=== PATIENT | female | born 1965 | race Caucasian/White ===

== ENCOUNTER 2019-02-12 10:40 | Observation (INO) ==
[2019-02-12] MEDS ORDERED: ASPIRIN PO ONE (11:06)
[2019-02-12] MEDS ORDERED: ASPIRIN ONE (11:10)
--- NOTE | 2019-02-12 11:27 | Diag Imaging Result Doc PS360 ---
CHEST-PORTABLE - 02/12/2019 INDICATION: stroke like symptoms COMPARISON: 11/30/2015 FINDINGS: The lungs are normally expanded and clear. Heart size and mediastinal contours are normal. No pneumothorax or pleural effusion. IMPRESSION: Negative exam. Electronically signed by Nikolai Smith 02/12/2019 11:25 AM
[2019-02-12 11:31] LABS: BASO# 0.04 X1000 (0.0-0.2); BASO% 0.4 % (0.0-0.8); EOS# 0.24 X1000 (0.0-0.7); EOS% 2.3 % (0.0-10.0); HEMATOCRIT 45.5 % (37.0-47.0); HEMOGLOBIN 15.9 g/dL (12.0-16.0); IMM GRAN# 0.02 X1000 (0.0-0.04); IMM GRAN% 0.2 % (0.0-0.5); LYMPH# 3.42 X1000 (1.2-3.4); LYMPH% 33.4 % (20.5-51.1); MCH 33.6 PG (27-31); MCHC 34.9 g/dL (33-37); MCV 96.2 FL (81-99); MONO# 0.52 X1000 (0.11-0.59); MONO% 5.1 % (1.7-9.3); MPV 11.1 FL (7.4-10.4); NEUT# 6.01 X1000 (1.4-6.5); NEUT% 58.6 % (42.2-75.2); PLT 243 X1000 (130-400); RBC 4.73 XMIL (4.2-5.4); RDW 12.2 % (11.5-14.5); WBC 10.25 X1000 (4.8-10.8)
[2019-02-12 11:34] LABS: URINE SOURCE CLEAN CATCH
[2019-02-12 11:35] LABS: INR 0.92; PROTIME 13.1 Seconds (11.0-16.0)
[2019-02-12 11:36] LABS: PTT 29.7 Seconds (22.3-41.8)
[2019-02-12 11:37] LABS: BILIRUBIN URINE NEGATIVE (NEGATIVE); BLOOD URINE MODERATE (NEGATIVE); COLOR STRAW; GLUCOSE URINE NEGATIVE (NEGATIVE); KETONE URINE NEGATIVE (NEGATIVE); LEUKOCYTES URINE NEGATIVE (NEGATIVE); NITRITE URINE NEGATIVE (NEGATIVE); PROTEIN URINE NEGATIVE (NEGATIVE); SP GRAVITY URINE 1.005; TURBIDITY URINE CLEAR (CLEAR); UROBILINOGEN URINE NORMAL (NORMAL)
[2019-02-12 11:38] LABS: UR EPITHELIAL CELLS <10 /HPF (<10); URINE BACTERIA NEGATIVE /HPF; URINE WBC <10 /HPF (<10)
[2019-02-12 11:58] LABS: AGAP 10; ALB/GLOB RATIO 1.4; ALBUMIN 4.2 g/dL (3.5-5.0); ALKALINE PHOSPHATASE 102 U/L (32-104); BUN 12 mg/dL (8-22); CALCIUM 9.2 mg/dL (8.8-10.2); CHLORIDE 102 mmol/L (98-107); COSMO 276; CREATININE 0.7 mg/dL (0.5-0.9); ESTIMATED GFR > 60; GLUCOSE 100 mg/dL (70-104); GOT 17 U/L (10-30); GPT 14 U/L (10-36); POTASSIUM 4.1 mmol/L (3.5-5.1); SODIUM 138 mmol/L (136-145); TCO2 26 mmol/L (25-35); TOTAL BILIRUBIN 0.56 mg/dL (0.20-1.00); TOTAL PROTEIN 7.1 g/dL (6.3-8.3)
--- NOTE | 2019-02-12 12:08 | EKG Report ---
Test Performed on : 02/12/2019 10:56:19 AM Test Reason : Stroke like symptoms Blood Pressure : / mmHG Vent. Rate : 081 BPM Atrial Rate : 081 BPM P-R Int : 176 ms QRS Dur : 074 ms QT Int : 376 ms P-R-T Axes : 049 001 040 degrees QTc Int : 436 ms Normal sinus rhythm. Normal ECG No previous ECGs available Unconfirmed Result
--- NOTE | 2019-02-12 12:24 | Diag Imaging Result Doc PS360 ---
CT HEAD W/O CONTRAST - 02/12/2019 INDICATION: stroke like symptoms COMPARISON: None FINDINGS: The ventricles and sulci are normal in size and contour. No intracranial mass or hemorrhage. The skull is intact. The sinuses mastoids and middle ears are clear. IMPRESSION: Negative exam. This exam was performed using automated exposure control, adjustment of mA or kV according to patient size, and/or use of iterative reconstruction technique Electronically signed by Nikolai Smith 02/12/2019 12:21 PM
--- NOTE | 2019-02-12 17:27 | PROVIDER DOCUMENTATION ---
This chart was entered by Lalitha Howell Scribe, acting as scribe for Guera Colon MD. HPI-Neurological Disorder - General Chief Complaint: Stroke-Like Symptoms Stated Complaint: left side facial/arm pain Time Seen by Provider: 02/12/19 11:10 Source: patient Allergies/Adverse Reactions: Patient Allergies Allergy/AdvReac Type Severity Reaction Status Date / Time No Known Allergies Allergy Verified 02/12/19 10:56 Home Medications: Home Medication List Medication Instructions Recorded Confirmed Last Taken Type NK [No Home Medications] 02/12/19 02/12/19 Unknown History - History of Present Illness-Neuro Nature of Presenting Problem: Patient is a 53 year old female who presents with blurred vision, tingling and numbness to left arm and left side face that started this morning at 0730. Patient states symptoms have currently resolved. Denies headache. Severity: reports: mild Onset/Duration: reports: this morning (0730) Timing: reports: gone now Context: reports: paresthesia, other (numbness) Character of Altered Mental Status: reports: N/A Character of Deficits: reports: altered sensation New weakness or altered sensation location:: reports: LUE, left facial Associated Symptoms: reports: vision changes (blurred) Similar Symptoms Previously?: No Recently seen or treated by another doctor?: No Review of Systems - Adult - REVIEW OF SYSTEMS - ADULT Constitutional: reports: no symptoms reported. denies: chills, fever, fatique Eyes: reports: see HPI, blurred vision. denies: decreased vision, double vision Ears, Nose, Mouth & Throat: reports: no symptoms reported Cardiovascular: reports: no symptoms reported Respiratory: reports: no symptoms reported Gastrointestinal: reports: no symptoms reported Genitourinary: reports: no symptoms reported Musculoskeletal: reports: no symptoms reported Integumentary: reports: no symptoms reported Neurological: reports: see HPI, numbness (LUE and left facial), paresthesia (LUE and left facial). denies: dizziness/vertigo, headache/migraines Psychiatric: reports: no symptoms reported Endocrine: reports: no symptoms reported Hematologic/Lymphatic: reports: no symptoms reported Allergic/Immunologic: reports: no symptoms reported All Other Systems: Reviewed and Negative Past History - Adult - PAST MEDICAL HISTORY-ADULT Review of Records: reports: Old Records Reviewed, Nursing Assessment Review, Medications Reviewed, Social history reviewed & non-contributory. Major Childhood Illnesses: reports: denies history Cardiovascular: reports: denies history Respiratory: reports: denies history Gastrointestinal: reports: denies history Obstetrical/Gynecological: reports: denies history Genitourinary: reports: denies history Musculoskeletal: reports: denies history Neurological: reports: denies history Endocrine/Immune: reports: denies history Other Conditions: reports: denies history - PRIOR SURGERIES/PROCEDURES Surgical/Procedure History: reports: cholecystectomy, - IMMUNIZATION STATUS Childhood Immunizations: See Nurse Assessment Flu Vaccine: See Nurse Assessment - FAMILY HISTORY Family History: reviewed, not pertinent - SOCIAL HISTORY Smoking: cigarettes, greater than 1 pack/day Provider spent 3-5 mins advising pt. on dangers of tobacco.: Discussed manners to quit use, and f/u contacts for add'l counseling. Substance Use: denies Physical Exam- Neurological - Physical Exam-Neuro Initial Vital Signs Reviewed: Yes General Appearance: alert, no apparent distress. negative: lethargic Eye Exam: bilateral eye: normal inspection, PERRL, EOMI HENMT: normocephalic/atraumatic, moist mucous membranes. negative: angioedema, hearing deficit Head Injury: no evidence of injury. negative: contusions, ecchymosis, lacerations Respiratory: chest non-tender, lungs clear, normal breath sounds. negative: crackles, rhonchi, stridor Cardiovascular: normal peripheral pulses, regular rate, rhythm. negative: tachycardia, systolic murmur Abdominal Exam: normal bowel sounds, non tender, soft. negative: guarding, rigid, rebound Extremity: non-tender, normal inspection. negative: deformity, erythema hand knitter Exam: normal hearing, normal speech, PERRL. negative: abnormal speech, fa cial droop Motor/Sensory: no motor deficit, no sensory deficit, no pronator drift. negative: sensory deficit Neurologic: grossly normal, no motor/sensory deficits. negative: aphasia, facial droop Integumentary: normal color, normal turgor, warm/dry. negative: cyanosis, ecchymosis, erythema Psych/Mental Status: normal mood/affect, oriented x 3. negative: anxious - Glascow Coma Scale Best Eye Response: (4) open spontaneously Best Verbal Response: (5) oriented Best Motor Response: (6) obeys commands Total Glascow Score: 15 Progress - PLAN OF CARE/RESULTS Result Diagrams: 02/12/19 11:14 02/12/19 11:14 - EKG 1 Time of EKG reading by physician:: 10:56 EKG Read and Signed by:: Guera Colon EKG Interpretation (*Must complete 3 of following elements*): Normal Rate: 81 Rhythm: normal sinus rhythm [place]: normal QRS: normal [place] Interval: normal ST Wave: normal Comments: normal ECG - XRAY 1 XRAY Study: Chest Impression: See EMR Report ( CHEST-PORTABLE - 02/12/2019 INDICATION: stroke like symptoms COMPARISON: 11/30/2015 FINDINGS: The lungs are normally expanded and clear. Heart size and mediastinal contours are normal. No pneumothorax or pleural effusion. IMPRESSION: Negative exam. Electronically signed by Nikolai Smith 02/12/2019 11:25 AM 02/12/19 1125 Interpreting Physician: Nikolai Smith MD Dictated Date/Time: 02/12/19 1125 cc: Geura Colon MD; None,PCP) - CT/MRI 1 CT Study: Head Impression: See EMR Report ( CT HEAD W/O CONTRAST - 02/12/2019 INDICATION: stroke like symptoms COMPARISON: None FINDINGS: The ventricles and sulci are normal in size and contour. No intracranial mass or hemorrhage. The skull is intact. The sinuses mastoids and middle ears are clear. IMPRESSION: Negative exam. This exam was performed using automated exposure control, adjustment of mA or kV according to patient size, and/or use of iterative reconstruction technique Electronically signed by Nikolai Smith 02/12/2019 12:21 PM 02/12/19 1221 Interpreting Physician: Nikolai Smith MD Dictated Date/Time: 02/12/19 1221 cc: Guera Colon MD; Salazar Cheng MD) - CONSULTS/PCP/HOSPITALIST Notification #1 *Consult/PCP/Hospitalist*: SURESH Cordova for Hospitalist Time Discussed: 12:47 Reason/Comments: Dr. Colon consulted with Tasha about patient. Consult Disposition: Will see in ED, Admit Departure - Departure Date of Disposition Decision: 02/12/19 Time of Disposition Decision: 11:57 DIAGNOSIS: TIA (transient ischemic attack) Disposition: ADMITTED INPATIENT 09 Certified Medical Emergency: Emergent Condition: Stable - Critical Care Note This patient required my direct & personal management of CC.: No Attestation - Physician/ DAVID Attestation Patient care was provided by Advanced Practice Provider:: No The physician spent face to face time with patient:: Yes Advanced Practice Provider documentation review:: Supervising physician onsite and consulted in the evaluation and care of this patient. The physician did have a face to face encounter with the patient. - NIH Stroke Scale Level of Consciousness: 0-Alert LOC Questions (ask month and age): 0-Answers Both Correctly LOC Commands (ask to open & close eyes;make a fist, let go): 0-Obeys Both Correctly Best Gaze (horizontal eye movement): 0-Normal Visual (use finger movement, counting or visual threat): 0-No Visual Loss Facial Palsy (show teeth or raise eyebrows & close eyes tght: 0-Symmetrical Movement Motor Function-left arm: 0-Normal Motor Function-right arm: 0-Normal Motor Function-left le-Normal Motor Function-right le-Normal Limb Ataxia(gjhlrj-zvlm-xvcixj, or heel to griffin): 0-No Ataxia Sensory(pin prick to face,arms,trunk,legs-compare side/side): 0-No Ataxia Best Language(name item/read sentence.Ex-Down to Earth): 0-No Aphasia Dysarthria(Pt read words or say words Ex.Mama,Tip-Top,Thanks: 0-Normal Articulation Extinction and Inattention: 0-Normal NIH Total Score: 0 Stroke tPA Guidelines - Consultation Candidate for:: NOT A CANDIDATE (patient is not a candidate due to symptoms resolving.) This chart was documented by the indicated scribe, (Lalitha Howell Scribe) and accurately reflects the services I performed and decisions made by me, Guera Colon MD, as attested by the provider's signature.
--- NOTE | 2019-02-12 18:43 | HISTORY AND PHYSICAL ---
CHIEF COMPLAINT: Blurred vision, numbness and tingling to face. HISTORY OF PRESENT ILLNESS: This is a 53-year-old female who presented to the emergency room complaining of blurred vision, numbness and tingling to her left arm and left side of the face. This started at approximately 7:30. Symptoms resolved by her arrival to the emergency room at 10:43. CT of the head was negative. She denies any prior symptoms, any prior illness, any headaches, dizziness, any palpitations or chest pain. She did state that she had some drooling to the left side of her mouth that started at the very end, although it did not recur. During my exam she did have periods while answering questions that she would pause and she seemed to stutter, although she was not aware of this. PAST MEDICAL HISTORY: Denies. PAST SURGICAL HISTORY: , cholecystectomy. SOCIAL HISTORY: She smokes a pack a day. She denies any alcohol or illicit drug use. ALLERGIES: No known drug allergies. HOME MEDICATIONS: None. REVIEW OF SYSTEMS: Discussed with the patient, with pertinent positives stated in HPI. She denied any syncope, dizziness, any chest pain, palpitations, shortness of breath, cough, fever, chills, any night sweats, recent weight loss or weight gain, any nausea, vomiting, diarrhea, constipation, black or bloody vomitus or stools, any hematuria, dysuria, frequency or urgency. PHYSICAL EXAMINATION: GENERAL: This is a 53-year-old female who is sitting up on the side of the bed in no distress. VITAL SIGNS: Blood pressure is 129/90 with a heart rate of 77, respirations are 18, temperature is 97.6 degrees with room air saturations 99% to 100%. EYES: Pupils are equal, round and reactive to light. EOMs are intact. Sclerae are anicteric. HEENT: Head is normocephalic, atraumatic. Mucous membranes are moist. NECK: Supple, with trachea midline. CARDIOVASCULAR: Regular rate and rhythm. S1, S2 appreciated. She has no lower extremity edema. Calves are nontender bilaterally, with peripheral pulses palpable x4 extremities. PULMONARY: Breath sounds are clear. No increased work of breathing noted. Chest rises and falls symmetric with respiration. GASTROINTESTINAL: Abdomen is soft, nontender, nondistended. Bowel sounds in all 4 quadrants. GENITOURINARY: She has no CVA or suprapubic tenderness. SKIN: Warm and dry. NEUROLOGIC: She is alert and oriented x3. Forehead is spared. She has equal nasal flaring. No tongue or uvula deviation. Speech is clear. She was drinking water when I came into the room. She had no difficulty swallowing. Equal shoulder shrug. She has no plantar drift. Finger-to- nose bilateral is 3/3. She has 5/5 muscle strength to 4 extremities. Kuas-zc-wpgf is 3/3 bilateral. LABORATORY DATA: WBC is 10.2 with hemoglobin 15.9, hematocrit 45.5, and platelets 243,000. Sodium is 138, potassium 4.1, BUN 12, creatinine 0.7 with a glucose of 100. Urinalysis is essentially negative. DIAGNOSTIC DATA: Chest x-ray is negative exam. Lungs are normally expanded and clear. Heart size and mediastinal contours are normal. No pneumothorax or pleural effusion. CT of the head reveals a negative exam. ASSESSMENT: 1. Transient ischemic attack. 2. Deep venous thrombosis prophylaxis. PLAN: The patient will be admitted to the medical floor. She will be placed on telemetry. We will get neurologic checks every 4 hours for 24 hours. We will get a CBC, CMP and a lipid profile in the morning. Blood pressures are running in the 120s to 160s over 90s. We will allow for permissive hypertension at least for the first 24 hours. We will reassess in the morning. Further treatments pending hospital course. Dictated by SURESH Neves for Savannah Marcelo MD cc: SURESH Neves MD
--- NOTE | 2019-02-12 19:57 | ECHO REPORT ---
ORDER DATE: 02/12/2019 INDICATION: Probably a stroke. M-MODE MEASUREMENTS: Left ventricle end diastole: 4.8. Left ventricle end systole: 3.0. Posterior wall: 1.0. Interventricular septum: 1.0. Left atrium: 3.0. Aortic diameter: 3.0. SUMMARY OF 2-DIMENSIONAL IMAGIN. The study was technically difficult. Optison was added to optimize visualization of the endocardium. 2. Left ventricular function appears to be normal in the range of 60% to 65%. There is no wall motion abnormality noted. 3. The inferior vena cava is not dilated. 4. The cardiac chambers are not dilated in general. 5. There is normal right ventricular function also. 6. There is no pericardial effusion. 7. The aortic valve opens normally. Color flow mapping unremarkable. 8. The mitral valve opens normally. There is a question of mitral valve prolapse. No significant mitral regurgitation appears to be present. 9. Pulsed wave Doppler of mitral inflow shows mild reversal of the E/A ratio. The ratio is 0.8. 10.Tissue Doppler of septal and lateral mitral annulus averages 7 cm. 11.There is no diastolic dysfunction. 12.The pulmonic valve looks grossly normal. Color flow mapping unremarkable. 13.The tricuspid valve was suboptimally visualized. Pulmonary pressure could not be estimated in this study. Clinical correlation recommended. cc: MD Mary Mann CRNP
[2019-02-13 07:12] LABS: BASO# 0.03 X1000 (0.0-0.2); BASO% 0.4 % (0.0-0.8); EOS# 0.29 X1000 (0.0-0.7); EOS% 3.6 % (0.0-10.0); HEMATOCRIT 43.5 % (37.0-47.0); HEMOGLOBIN 14.9 g/dL (12.0-16.0); IMM GRAN# 0.02 X1000 (0.0-0.04); IMM GRAN% 0.2 % (0.0-0.5); MCH 33.3 PG (27-31); MCHC 34.3 g/dL (33-37); MCV 97.1 FL (81-99); MONO# 0.47 X1000 (0.11-0.59); MONO% 5.8 % (1.7-9.3); NEUT# 4.71 X1000 (1.4-6.5); PLT 230 X1000 (130-400); RBC 4.48 XMIL (4.2-5.4); RDW 12.3 % (11.5-14.5); WBC 8.12 X1000 (4.8-10.8)
[2019-02-13 07:28] LABS: AGAP 9; ALB/GLOB RATIO 1.4; ALKALINE PHOSPHATASE 91 U/L (32-104); BUN 12 mg/dL (8-22); CALCIUM 9.2 mg/dL (8.8-10.2); CHLORIDE 107 mmol/L (98-107); COSMO 285; CREATININE 0.7 mg/dL (0.5-0.9); ESTIMATED GFR > 60; GLUCOSE 102 mg/dL (70-104); GOT 15 U/L (10-30); GPT 14 U/L (10-36); POTASSIUM 4.1 mmol/L (3.5-5.1); SODIUM 143 mmol/L (136-145); TCO2 27 mmol/L (25-35); TOTAL BILIRUBIN 0.69 mg/dL (0.20-1.00); TOTAL PROTEIN 6.9 g/dL (6.3-8.3)
[2019-02-13 07:39] LABS: CHOLESTEROL 210 mg/dL (0-200); HDL 37 mg/dL (45-65); LDL 142 mg/dL; TRIGLYCERIDES 156 mg/dL (35-135); VLDL 31 mg/dL
[2019-02-13] MEDS ORDERED: LOVENOX SUBQ SCH (09:00)
--- NOTE | 2019-02-13 11:44 | Diag Imaging Result Doc PS360 ---
MRI BRAIN W/WO CONTRAST - 02/13/2019 INDICATION: CVA/ TIA COMPARISON: Head CT 02/12/2019 FINDINGS: There is no area of restricted diffusion. The ventricles and sulci are normal in size and contour. No intracranial mass or hemorrhage. No area of abnormal contrast enhancement. Midline structures including the optic chiasm and pituitary are normal. IMPRESSION: Negative exam. Electronically signed by Nikolai Smith 02/13/2019 11:41 AM
--- NOTE | 2019-02-13 11:46 | Diag Imaging Result Doc PS360 ---
MR angiogram neck without and with intravenous contrast - 02/13/2019 INDICATION: CVA / TIA TECHNIQUE: Noncontrast lubn-[id number]-livkph technique was used. Contrast images were also performed. COMPARISON: None FINDINGS: Normal aortic arch. The carotid artery systems are normal bilaterally. The vertebral arteries are patent. The right vertebral artery is dominant. Normal-appearing basilar artery. No aneurysm or significant stenosis. IMPRESSION: Negative exam. Electronically signed by Nikolai Smith 02/13/2019 11:43 AM
--- NOTE | 2019-02-13 11:47 | Diag Imaging Result Doc PS360 ---
MRA BRAIN W/O CONTRAST - 02/13/2019 INDICATION: CVA/ TIA TECHNIQUE: Noncontrast ddif-dn-wfgono technique was used COMPARISON: None FINDINGS: The intracranial arteries are all patent. There is no aneurysm or stenosis. There is a normal anatomic variant, with origin of both posterior cerebral arteries. The basilar artery itself is very small supplying only the cerebellum. IMPRESSION: Negative exam. Electronically signed by Nikolai Smith 02/13/2019 11:45 AM
[2019-02-13 13:15] VITALS: BP 121/88
--- NOTE | 2019-02-14 05:49 | DISCHARGE SUMMARY ---
ADMISSION DATE: 02/12/2019 DISCHARGE DATE: 02/13/2019 DISPOSITION: Home FOLLOW-UP: Will be with patient's PCP. ADMISSION DIAGNOSIS: Transient ischemic attack. DIAGNOSES AT TIME OF DISCHARGE: 1. Transient ischemic attack with negative neurological workup. 2. Mild dyslipidemia. 3. Tobacco abuse and dependence. 4. Mild clinical volume depletion improved. CONSULTATIONS DURING ADMISSION: None. IMAGING STUDIES OF SIGNIFICANCE: 1. CT scan of the head was negative on presentation. 2. A chest x-ray shows negative exams. 3. MRI of the brain and MRA of the neck, and MRA of the brain were all negative. DISCHARGE MEDICATIONS: None. PRESENTING COMPLAINT: Blurry vision, numbness and tingling of face, and left upper extremity. HISTORY OF PRESENTING COMPLAINT: Ms. Arreguin is a 53-year-old female who presented to the emergency department because of acute onset of facial numbness and numbness to the left upper extremity. The patient has never had any symptoms like that so she came to the emergency department where she was evaluated. Because of concern of TIA/CVA, she was admitted for neurological observation and workup. HOSPITAL COURSE: Rodríguez Amanda did pretty well during the hospital course. This morning she denies any more neurological symptoms, everything seems to have resolved. She underwent all the neurological workup including an MRI of the brain, MRA of the neck and brain which were all negative. Initially, she also had a presenting CT scan of the of the head without contrast, which was negative. This morning, her physical exam is completely normal. We think Ms. Arreguin could have maybe a very mild TIA that was not picked up on the MRI. She has been advised to follow up with her primary care doctor. Her triglyceride and cholesterol were minimally elevated. HDL cholesterol is slightly low. We have advised her to do diet management for now, and also follow up with her primary care doctor and repeat this test in maybe the next 3 months and decide if there is persistent trended then she will probably need to be on some on pharmacological therapy. Ms. Arreguin is also dependent on tobacco products, and we have advised on cessation of tobacco. Today, her vitals show blood pressure 120/65, pulse of 71, respirations 16, and temperature 97.7 degrees. The patient is saturating 98% on room air. Physical exam is completely negative. All the discharge instructions have been discussed with her, and she voiced understanding. TIME SPENT FOR DISCHARGE: 36 minutes. cc: MD Salazar Flanagan MD
== END 2019-02-13 13:30 | disposition home or self-care (01) ==
LOC: 3N 10:40 → ED 10:40
PROVIDERS: ATTEND Internal Medicine
CPT/HCPCS: 70450; 70544; 70548; 70553; 71010; 71045; 80053; 80061; 81001; 82550; 83880; 84484; 85025; 85610; 85730; 93005; 93306; 93880; A9270; A9579; C8929; J1650; Q9957